=== PATIENT | male | born 2000 | race Hispanic/Latino ===

== ENCOUNTER 2024-06-05 21:08 | Emergency (ER) | payer SELFPAY ==
--- NOTE | ~2024-06-05 | CT_ITS ---
Clinical Indication: Dyspnea CT Scan of the Chest with Contrast: Technique: Contiguous sections were acquired throughout the chest after intravenous administration of 100 cc of Omnipaque 350. Dose reduction technique was used on this scan by utilizing automated expos ure control and iterative reconstruction technique. The dose-length product (DLP) was 491.52 mGy-cm. Findings: There is no evidence of any significant mediastinal, hilar or axillary lymphadenopathy. There is no f illing defect in the pulmonary arterial tree to suggest pulmonary embolus. There is no evidence of ao rtic dissection or aneurysm. There is no evidence of pleural or pericardial effusion. The lungs are clear. No pulmonary nodules or infiltrates are noted. Images through the upper abdomen reveal no abnormalities. Impression: No evidence of pulmonary embolus, aortic dissection, or aortic aneurysm. Clear lungs. Reviewed, dictated and finalized at [facility]. Impression: No evidence of pulmonary embolus, aortic dissection, or aortic aneurysm. Clear lungs.
--- NOTE | ~2024-06-05 | XR_ITS ---
Portable chest x-ray Comparison: None Clinical History: Pain Findings: Lungs are clear, without focal consolidation or pleural effusion. Cardiomediastinal silho uette is unremarkable. Bones and soft tissues are unremarkable. Impression: Normal chest. Reviewed, dictated and finalized at [facility]. Impression: Normal chest.
[2024-06-05 21:09] VITALS: BP 151/83; PULSE 91; RESP 16; TEMP 36.6; O2SAT 100
--- NOTE | 2024-06-05 21:36 | ECG_ITS ---
Test Date: 2024-06-05 22:00:30 Measurements Intervals [place] Rate: 95 P: 33 IN: 148 QRS: 17 QRSD: 101 T: 8 QT: 355 QTc: 448 Interpretive Statements SINUS RHYTHM EARLY PRECORDIAL R/S TRANSITION POSSIBLE LEFT VENTRICULAR HYPERTROPHY MINIMAL Q WAVES- HIGH LATERAL LEADS NONSPECIFIC T-WAVE ABNORMALITY- INFERIOR LEADS BORDERLINE ECG No previous ECG available for comparison Electronically Signed On 06-06-2024 06:17:28 CDT by Santos Mccarthy D.O.
[2024-06-05 21:58] LABS: Basophils Percent Auto 0.4 % (0.2-1.2); Eosinophils Percent Auto 0.3 % (0-4.4); Hematocrit 38.7 % (42.0-52.0); Hemoglobin 13.3 g/dL (14.0-18.0); Immature Granulocyte Absolute 0.02 K/mm3 (0.00-0.031); Immature Granulocyte Percent A 0.3 % (0-0.5); Lymphocytes Absolute Auto 1.22 K/mm3 (0.9-3.2); Lymphocytes Percent Auto 17.8 % (18.3-44.2); Mean Corpuscular HGB Conc 34.4 g/dl (32-36); Mean Corpuscular Volume 87.4 fl (80-100); Mean Platelet Volume 10.1 fl (7.4-10.4); Monocytes Absolute Auto 0.6 K/mm3 (0.1-0.6); Monocytes Percent Auto 9.4 % (2.6-8.5); Neutrophils Absolute Auto 4.9 K/mm3 (1.3-6.7); Neutrophils Percent Auto 71.8 % (45.5-73.1); Platelet Count Result 191 k/mm3 (150-375); Red Blood Count 4.43 M/mm3 (4.6-6.20); Red Cell Distribution Width 12.7 % (11.5-14.5); White Blood Count 6.8 K/mm3 (4.5-10.0)
[2024-06-05 22:08] LABS: Anion Gap 13 mmol/L (4-12); Blood Urea Nitrogen 15 mg/dL (9-20); Calcium 9.4 mg/dL (8.4-10.2); Carbon Dioxide 23 mmol/L (22-30); Chloride 103 mmol/L (98-107); Estimated CRCL calculation 99 ml/min; Estimated Glomerular Filt Rate > 60; Glucose 95 mg/dL (65-110); Potassium 3.5 mmol/L (3.4-5.0); Sodium 139 mmol/L (137-145)
[2024-06-05 22:15] LABS: Partial Thromboplastin Time 24.5 Seconds (22.3-36.8)
[2024-06-05 22:19] LABS: Troponin I < 0.012 ng/mL (0.000-0.034)
[2024-06-05 22:38] VITALS: O2SAT 99
--- NOTE | 2024-06-05 22:52 | ED.SOB ---
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 States that he had a rapid heart rate and felt a pressure in the central chest. He states that it is hard to catch his breath with deeper breaths. There is some pain with deep breathing. Central chest pain does not radiate. endorses some heaviness of the right arm today. Denies focal numbness. Denies nausea, vomiting, syncope, Abdominal pain, cough, hemoptysis, back pain Review of Systems Review of Systems: All systems as dictated in HPI Exam Narrative: GENERAL: Well-appearing, well-nourished, and in no acute distress. HEAD: Normocephalic, atraumatic. EYES: PERRLA and EOMI. ENT: Nares clear, no rhinorrhea or epistaxis. Mucous membranes moist. Oropharynx without tonsillar hypertrophy exudate or other lesions. NECK: Supple. No adenopathy or masses. CHEST: No respiratory distress. Clear to auscultation. No wheezes rales or rhonchi HEART: Regular rate and rhythm. No murmur heard. Normal peripheral pulses. ABDOMEN: Soft, nontender, nondistended, normal active bowel sounds. MSK: Normal range of motion. No edema. SKIN: Warm, dry, no rash. NEURO: Alert and oriented x4. No focal deficits. PSYCH: Normal mood and affect. Course Vital Signs Vital signs: Vital Signs Temperature 97.8 F 06/05/24 21:09 Pulse Rate 91 06/05/24 21:09 Respiratory Rate 16 06/05/24 21:09 Blood Pressure 151/83 H 06/05/24 21:09 Pulse Oximetry 100 06/05/24 21:09 Oxygen Delivery Room Air 06/05/24 21:09 Temperature 97.8 F 06/05/24 21:09 Pulse Rate 70 06/06/24 00:30 Respiratory Rate 17 06/06/24 00:30 Blood Pressure 116/72 06/06/24 00:30 Pulse Oximetry 100 06/06/24 00:30 Oxygen Delivery Room Air 06/05/24 22:38 MDM - SOB/Dyspnea MDM Narrative Medical decision making narrative: this is a 24-year-old male who presents to the ED with chief complaint of palpitations, chest pressure and shortness of breath 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 Vitals are normal. Exam is benign overall. EKG shows normal sinus rhythm lab work is grossly unremarkable. Troponins at 0 and 3 hours are negative. Chest CTA shows no acute findings. He is declining anything for pain here. He is largely asymptomatic at this time. Symptoms consistent with palpitations and atypical chest pain Pt will be discharged in stable condition. Return precautions given and supportive measures discussed. Pt is understanding and agreeable with plan for discharge and follow-up with PCP. Lab Data 06/05/24 21:53 06/05/24 21:53 Labs: Lab Results 06/05/24 06/06/24 Range/Units 21:53 00:16 WBC 6.8 (4.5-10.0) K/mm3 RBC 4.43 L (4.6-6.20) M/mm3 Hgb 13.3 L (14.0-18.0) g/dL Hct 38.7 L (42.0-52.0) % MCV 87.4 (80-100) fl MCH 30.0 (26-34) pg MCHC 34.4 (32-36) g/dl RDW 12.7 (11.5-14.5) % Plt Count 191 (150-375) k/mm3 MPV 10.1 (7.4-10.4) fl Immature Gran % (Auto) 0.3 (0-0.5) % Neut % (Auto) 71.8 (45.5-73.1) % Lymph % (Auto) 17.8 L (18.3-44.2) % Payne % (Auto) 9.4 H (2.6-8.5) % Eos % (Auto) 0.3 (0-4.4) % Baso % (Auto) 0.4 (0.2-1.2) % Lymph # (Auto) 1.22 (0.9-3.2) K/mm3 Payne # (Auto) 0.6 (0.1-0.6) K/mm3 Eos # (Auto) 0.0 (0-0.3) K/mm3 Baso # (Auto) 0.0 (0.0-0.1) K/mm3 Abs Immat Gran (auto) 0.02 (0.00-0.031) K/mm3 Absolute Neuts (auto) 4.9 (1.3-6.7) K/mm3 Absolute Nucleated RBC 0.000 (0.0-0.012)
--- NOTE | 2024-06-06 00:09 | ECG_ITS ---
Test Date: 2024-06-06 00:09:49 Measurements Intervals [place] Rate: 61 P: 44 CT: 149 QRS: 18 QRSD: 102 T: 17 QT: 414 QTc: 419 Interpretive Statements SINUS RHYTHM EARLY PRECORDIAL R/S TRANSITION ST ELEVATION IN DIFFUSE LEADS, PROBABLY EARLY REPOLARIZATION MINIMAL Q WAVES- HIGH LATERAL LEADS BORDERLINE ECG Compared to ECG 06/05/2024 22:00:30 NO SIGNIFICANT CHANGE Electronically Signed On 06-06-2024 15:13:12 CDT by Santos Mccarthy D.O.
[2024-06-06 00:30] VITALS: BP 116/72; PULSE 70; RESP 17; O2SAT 100
[2024-06-06 00:44] LABS: Troponin I < 0.012 ng/mL (0.000-0.034)
[2024-06-06 02:00] VITALS: BP 124/66; PULSE 69; RESP 15; O2SAT 100
== END 2024-06-06 02:01 | disposition home or self-care (01) ==
PROVIDERS: Emergency Provider Physician Assistant; PCP Emergency Medicine
DX: R07.89 Other chest pain (principal); R00.2 Palpitations; R94.31 Abnormal electrocardiogram [ECG] [EKG]
CPT/HCPCS: 36415; 71045; 71275; 80048; 84484; 85025; 85610; 85730; 93005; 99284; Q9967